=== PATIENT | female | born 1995 ===

== ENCOUNTER 2016-06-20 19:42 | Emergency (ER) | payer BC, OTHER ==
[2016-06-20 19:47] VITALS: BP 135/83; PULSE 78; RESP 18; TEMP 98.1; O2SAT 100
[2016-06-20] MEDS ORDERED: DiphenhydrAMINE 50 mg/ml Inj IM STA (20:09)
[2016-06-20] MEDS ORDERED: methylPREDNISolone 125 MG in Sodium Chloride 0.9% 50 ML IM STA (20:10)
--- NOTE | 2016-06-20 20:24 | ED PDOC ---
HPI: General Adult Time Seen by Provider: 06/20/16 19:57 Chief Complaint (Nursing): Abnormal Skin Integrity Chief Complaint (Provider): Rash History Per: Patient History/Exam Limitations: no limitations Onset/Duration Of Symptoms: Days (x4 days) Have you had recent travel within the past 21 days to any of the following countries: [place], [place], [place] or [place]?: No Current Symptoms Are (Timing): Still Present Severity: Moderate Location: neck and chest Quality: pruritic Additional Complaint(s): Sachi Menjivar is a 21 year old female, with no pertinent past medical history, who presents to the emergency department for the evaluation of a pruritic, erythematous rash located across the right side of her neck, that radiates down toward her chest, that the patient has been experiencing for the past 4 days. Patient took one dose of children's Benadryl without relief prior to arrival. Denies throat swelling, shortness of breath, or previous allergic reactions. Of note, patient went to the [facility] on Thursday and was given steroid cream; however, it provided no relief, prompting her visit to the emergency department. PMD: none specified Past Medical History Reviewed: Historical Data, Nursing Documentation, Vital Signs Vital Signs: Last Vital Signs Temp 98.1 F 06/20/16 19:45 Pulse 78 06/20/16 19:45 Resp 18 06/20/16 19:45 BP 135/83 06/20/16 19:45 Pulse Ox 100 06/20/16 21:04 - Medical History PMH: No Chronic Diseases - Surgical History Surgical History: No Surg Hx - Family History Family History: States: Unknown Family Hx - Social History Current smoker - smoking cessation education provided: No Ex-Smoker (has not smoked in the last 12 months): No Alcohol: None Drugs: Denies - Home Medications Home Medications: Ambulatory Orders Medication Instructions Recorded DiphenhydrAMINE [Benadryl] 1 - 2 cap PO Q6 PRN #30 cap 06/20/16 Methylprednisolone [Medrol Dose 4 mg PO DAILY #21 mg 06/20/16 Pack (21 tabs)] - Allergies Allergies/Adverse Reactions: Allergies Allergy/AdvReac Type Severity Reaction Status Date / Time No Known Allergies Allergy Verified 06/20/16 19:45 Review of Systems ROS Statement: Except As Marked, All Systems Reviewed And Found Negative ENT: Negative for: Throat Swelling Respiratory: Negative for: Shortness of Breath Skin: Positive for: Rash Physical Exam - Reviewed Nursing Documentation Reviewed: Yes Vital Signs Reviewed: Yes - Physical Exam Appears: Positive for: Non-toxic, No Acute Distress Skin: Positive for: Normal Color, Warm, Dry, Pallor (blanching), Rash (large erythematous patch, anterior chest, extending to the right lateral neck; borders are ill-defined; no vesicles) ENT: Positive for: Normal ENT Inspection. Negative for: Pharyngeal Erythema, Tonsillar Exudate, Tonsillar Swelling Respiratory: Positive for: Normal Breath Sounds. Negative for: Respiratory Distress Neurologic/Psych: Positive for: Alert, Oriented - ECG O2 Sat by Pulse Oximetry: 100 (RA) Pulse Ox Interpretation: Normal Medical Decision Making Medical Decision Makin:57 Initial Impression: Rash Initial Plan: * Benadryl 50 mg IM * SOLU-Medrol 125 mg IM * Reevaluation Scribe Attestation: Documented by Tyrone Sierra, acting as a scribe for YESSY Sosa. Provider Scribe Attestation: All medical record entries made by the Scribe were at my direction and personally dictated by me. I have reviewed the chart and agree that the record accurately reflects my personal performance of the history, physical exam, medical decision making, and the department course for this patient. I have also personally directed, reviewed, and agree with the discharge instructions and disposition. Disposition - Clinical Impression Clinical Impression: Rash - Patient ED Disposition Is Patient to be Admitted: No - Disposition Referrals: [facility] [Outside] Disposition: Routine/Home Disposition Time: 20:15 Condition: STABLE Additional Instructions: Follow up with your [facility] for further evaluation. Prescriptions: DiphenhydrAMINE [Benadryl] 1 - 2 cap PO Q6 PRN #30 cap PRN Reason: Itching / Pruritus Methylprednisolone [Medrol Dose Pack (21 tabs)] 4 mg PO DAILY #21 mg Instructions: Acute Rash (ED) Print Language: M[place]
== END 2016-06-20 20:36 | disposition home or self-care (01) ==
LOC: H.ER 19:42
DX: R21 Rash and other nonspecific skin eruption (principal); Z87.891 Personal history of nicotine dependence